=== PATIENT | female | born 1950 | race Caucasian/White ===

== ENCOUNTER → 2019-10-06 | Outpatient (CLI) | payer MEDICARE, BC | END | disposition home or self-care (01) | LOC: RAD 16:30 | PROVIDERS: ATTEND Nurse Practitioner | DX: S93.431A Sprain of tibiofibular ligament of right ankle, initial encounter (principal); X58.XXXA Exposure to other specified factors, initial encounter; Y93.89 Activity, other specified; Y92.89 Other specified places as the place of occurrence of the external cause; Y99.8 Other external cause status; M19.071 Primary osteoarthritis, right ankle and foot; M65.9 Synovitis and tenosynovitis, unspecified; M25.471 Effusion, right ankle; M77.51 Other enthesopathy of right foot and ankle; R60.9 Edema, unspecified ==